=== PATIENT | female | born 1995 | race Caucasian/White ===

== ENCOUNTER 2025-04-10 01:25 | Emergency (ER) | payer OTHER ==
[~2025-04-10] VITALS: Ht 165.1 cm; Wt 104.5 kg
[2025-04-10 01:42] LABS: COVID AG,FIA SOURCE NASAL SWAB
[2025-04-10 02:22] LABS: SARS-COV2 (COVID) ANTIGEN,FIA Negative (Negative)
[2025-04-10] MEDS: KETOROLAC TROMETHAMINE 30 MG/ML VIAL IM ONE (03:00)
[2025-04-10] MEDS: dexAMETHasone 4 MG TABLET PO ONE (03:00)
[2025-04-10] MEDS: ACETAMINOPHEN 500 MG TABLET PO ONE (03:01)
[2025-04-10 03:06] VITALS: BP 124/68; PULSE 84; RESP 16; TEMP 97.3; O2SAT 100
[2025-04-10] MEDS ORDERED: DEXA4 PO (03:07)
[2025-04-10] MEDS ORDERED: BENZ-227 PO (03:07)
== END 2025-04-10 04:17 | disposition home or self-care (01) ==
LOC: EMS 01:25
DX: J06.9 Acute upper respiratory infection, unspecified (principal); R05.9 Cough, unspecified; J02.8 Acute pharyngitis due to other specified organisms; B97.89 Other viral agents as the cause of diseases classified elsewhere; Z20.822 Contact with and (suspected) exposure to COVID-19
CPT/HCPCS: 99283; 87426; 87430; 96372; J1885; J8540